=== PATIENT | male | born 1955 | race African-American/Black ===

== ENCOUNTER 2018-02-15 20:49 | Inpatient (IN) | payer OTHER ==
[~2018-02-15] VITALS: Ht 185.4 cm; Wt 95.7 kg
[~2018-02-15 20:49] MED LIST: ATORVASTATIN CA20 MG PO; LISINOPRIL10 MG PO; METFORMIN HCL500 M2 PO; TRULICITY; VITAMIN D35000 UNI1
[2018-02-15] MEDS ORDERED: SODIUM CHLORIDE 0.9% 1000ML 1,000 ML IV STA (21:05)
[2018-02-15] MEDS ORDERED: PANTOPRAZOLE 40 MG 10ML VIAL IV STA (21:05)
[2018-02-15 21:30] LABS: BASOPHILS % 0.2 % (0.0-1.0); EOSINOPHILS % 0.1 % (0.0-6.0); HEMATOCRIT 41.2 % (38.2-49.6); HEMOGLOBIN 14.4 g/dL (14.0-18.0); LYMPHOCYTES # (AUTO) 0.8 (1.0-3.2); LYMPHOCYTES % 5.3 % (18.0-39.1); MEAN CORPUSCULAR HEMOGLOBIN 29.5 pg (28-32); MEAN CORPUSCULAR VOLUME 84.4 fL (81-99); MONOCYTES # (AUTO) 0.6 (0.2-0.8); MONOCYTES % 3.9 % (4.4-11.3); NEUTROPHILS % 90.1 % (38.7-80.0); PLATELET COUNT 177 x10e3/uL (140-360); RED BLOOD COUNT 4.88 x10e6/uL (4.3-5.7); RED CELL DISTRIBUTION WIDTH 13.9 % (11.7-14.4)
[2018-02-15 21:38] LABS: INR 1.13; PARTIAL THROMBOPLASTIN TIME 24.9 seconds (23.8-35.5); PROTHROMBIN TIME 13.6 seconds (11.9-14.5)
--- NOTE | 2018-02-15 21:41 | Diagnostic Imaging Report ---
CHEST SINGLE (PORTABLE), 02/15/2018 9:05 PM Technique: CHEST SINGLE (PORTABLE) Comparison: None available. Clinical history: Fever Findings: Unremarkable portable appearance of the heart, mediastinum, lungs and pleural spaces. Prominent cardiac silhouette, likely accentuated by technique. Impression: 1. Lines/Tubes: None 2. No acute abnormality. Signed by: Dr Judi George MD on 02/15/2018 9:38 PM
[2018-02-15 21:49] LABS: ALANINE AMINOTRANSFERASE 20 IU/L (0-55); ALBUMIN 4.1 g/dL (3.5-5.0); ALBUMIN/GLOBULIN RATIO 1.3 (0.8-2.0); ALKALINE PHOSPHATASE 79 IU/L (40-150); ANION GAP 16.3 mmol/L (8-16); BLOOD UREA NITROGEN 11 mg/dL (7-26); BUN/CREATININE RATIO 9 (6-25); CALCIUM 9.5 mg/dL (8.4-10.2); CARBON DIOXIDE 24 mmol/L (22-29); CHLORIDE 105 mmol/L (98-107); CREATINE KINASE 170 IU/L (30-200); CREATININE, SERUM 1.17 mg/dL (0.72-1.25); EST GLOMERULAR FILTRATION RATE > 60 ML/MIN (60-); GLUCOSE 117 mg/dL (74-118); MAGNESIUM 2.2 MG/DL (1.3-2.1); POTASSIUM 3.3 mmol/L (3.5-5.1); SODIUM 142 mmol/L (136-145)
[2018-02-15] MEDS ORDERED: MEROPENEM 1 GM VIAL ONE (21:51)
[2018-02-15] MEDS ORDERED: MEROPENEM 1GRAM 1 GM in SODIUM CHLORIDE 0.9% 100 ML 100 ML IV SCH (22:00)
[2018-02-15] MEDS: ACETAMINOPHEN 1000 MG/100 ML IV SCH (22:00)
[2018-02-15] MEDS: MEROPENEM 1GRAM 1 GM in SODIUM CHLORIDE 0.9% 100 ML 100 ML IV SCH (22:48)
[2018-02-15 23:03] LABS: CLARITY,URINE CLOUDY (CLEAR); COLOR,URINE YELLOW (YELLOW); LEUKOCYTE ESTERASE ,URINE NEGATIVE (NEGATIVE); NITRITE,URINE NEGATIVE (NEGATIVE); PROTEIN,URINE DIPSTICK NEGATIVE (NEGATIVE)
[2018-02-15 23:04] LABS: BACTERIA,URINE MODERATE /HPF; BILIRUBIN,URINE NEGATIVE (NEGATIVE); EPITHELIAL CELLS,URINE RARE /LPF; KETONES,URINE NEGATIVE (NEGATIVE); MUCUS,URINE FEW (RARE); RBC,URINE 21-50 /HPF (0-5); URINE UROBILINOGEN 0.2 mg/dL (0.2 - 1); WBC,URINE (MAN) 21-50 /HPF (0-5)
[2018-02-15] MEDS ORDERED: MORPHINE SULFATE 2 MG/ML SYR IV PRN (23:30)
[2018-02-15] MEDS ORDERED: KCL 20MEQ/.9 SOD CHL 1,000 ML IV ONE (23:30)
[2018-02-15] MEDS ORDERED: DEXTROSE 50% SYRINGE 50 ML IV PRN (23:30)
[2018-02-15] MEDS ORDERED: ONDANSETRON HCL INJ 2 MG/ML VIAL IV PRN (23:30)
[2018-02-16] VITALS (9 sets, daily range): BP systolic 97–129; BP diastolic 56–62
[2018-02-16] MEDS: ACETAMINOPHEN 1000 MG/100 ML IV SCH ×4 (01:00→17:02)
[2018-02-16 04:43] LABS: BASOPHILS % 0.3 % (0.0-1.0); HEMATOCRIT 39.5 % (38.2-49.6); HEMOGLOBIN 13.6 g/dL (14.0-18.0); LYMPHOCYTES # (AUTO) 0.7 (1.0-3.2); LYMPHOCYTES % 4.7 % (18.0-39.1); MEAN CORPUSCULAR HEMOGLOBIN 29.6 pg (28-32); MEAN CORPUSCULAR HGB CONC 34.4 g/dL (31-35); MEAN CORPUSCULAR VOLUME 85.9 fL (81-99); MONOCYTES # (AUTO) 0.3 (0.2-0.8); MONOCYTES % 1.8 % (4.4-11.3); NEUTROPHILS # (AUTO) 14.5 (2.1-6.9); NEUTROPHILS % 92.8 % (38.7-80.0); PLATELET COUNT 170 x10e3/uL (140-360); RED CELL DISTRIBUTION WIDTH 14.1 % (11.7-14.4)
[2018-02-16] MEDS ORDERED: MEROPENEM 1 GM VIAL ONE ×3 (05:07→21:12)
[2018-02-16] MEDS: MEROPENEM 1GRAM 1 GM in SODIUM CHLORIDE 0.9% 100 ML 100 ML IV SCH ×3 (05:33→21:29)
[2018-02-16 06:58] LABS: ALANINE AMINOTRANSFERASE 17 IU/L (0-55); ALBUMIN 3.6 g/dL (3.5-5.0); ALBUMIN/GLOBULIN RATIO 1.3 (0.8-2.0); ALKALINE PHOSPHATASE 67 IU/L (40-150); ANION GAP 15.7 mmol/L (8-16); BLOOD UREA NITROGEN 11 mg/dL (7-26); BUN/CREATININE RATIO 9 (6-25); CALCIUM 8.9 mg/dL (8.4-10.2); CARBON DIOXIDE 24 mmol/L (22-29); CHLORIDE 102 mmol/L (98-107); CREATININE, SERUM 1.23 mg/dL (0.72-1.25); EST GLOMERULAR FILTRATION RATE > 60 ML/MIN (60-); GLUCOSE 129 mg/dL (74-118); POTASSIUM 4.7 mmol/L (3.5-5.1); SODIUM 137 mmol/L (136-145)
[2018-02-16] MEDS: INSULIN REGULAR, HUMAN 100 UNIT/1 ML 3ML VIAL SQ SCH ×4 (09:03→21:27)
[2018-02-16] MEDS ORDERED: HYDROCODONE/APAP 5MG-325MG TAB PO PRN (13:15)
[2018-02-16] MEDS: BACITRACIN ZINC 15 GM OINT TOP SCH (17:02)
[2018-02-16] MEDS: METFORMIN HCL 500 MG TAB CR PO SCH (17:02)
[2018-02-16] MEDS: ATORVASTATIN 40 MG TAB PO SCH (21:26)
[2018-02-16] MEDS: TAMSULOSIN HCL 0.4 MG CAP PO SCH (21:26)
[2018-02-17] VITALS (7 sets, daily range): BP systolic 97–121; BP diastolic 51–58
[2018-02-17] MEDS ORDERED: ACETAMINOPHEN 325 MG TAB PO PRN (00:30)
[2018-02-17 05:31] LABS: BASOPHILS % 0.2 % (0.0-1.0); HEMATOCRIT 38.8 % (38.2-49.6); HEMOGLOBIN 13.5 g/dL (14.0-18.0); MEAN CORPUSCULAR HEMOGLOBIN 29.5 pg (28-32); MEAN CORPUSCULAR HGB CONC 34.8 g/dL (31-35); MEAN CORPUSCULAR VOLUME 84.7 fL (81-99); MONOCYTES # (AUTO) 0.5 (0.2-0.8); MONOCYTES % 5.2 % (4.4-11.3); NEUTROPHILS # (AUTO) 7.8 (2.1-6.9); PLATELET COUNT 146 x10e3/uL (140-360); RED BLOOD COUNT 4.58 x10e6/uL (4.3-5.7)
[2018-02-17 05:51] LABS: ANION GAP 16.7 mmol/L (8-16); BLOOD UREA NITROGEN 13 mg/dL (7-26); BUN/CREATININE RATIO 12 (6-25); CARBON DIOXIDE 22 mmol/L (22-29); CHLORIDE 104 mmol/L (98-107); EST GLOMERULAR FILTRATION RATE > 60 ML/MIN (60-); GLUCOSE 107 mg/dL (74-118); POTASSIUM 3.7 mmol/L (3.5-5.1); SODIUM 139 mmol/L (136-145)
[2018-02-17] MEDS ORDERED: MEROPENEM 1 GM VIAL ONE ×3 (05:53→20:53)
[2018-02-17] MEDS: MEROPENEM 1GRAM 1 GM in SODIUM CHLORIDE 0.9% 100 ML 100 ML IV SCH ×3 (06:10→21:10)
[2018-02-17] MEDS: INSULIN REGULAR, HUMAN 100 UNIT/1 ML 3ML VIAL SQ SCH ×4 (07:30→21:00)
[2018-02-17] MEDS: METFORMIN HCL 500 MG TAB CR PO SCH ×2 (08:08→16:40)
[2018-02-17] MEDS: LISINOPRIL 20 MG TAB PO SCH (08:08)
[2018-02-17] MEDS: BACITRACIN ZINC 15 GM OINT TOP SCH ×2 (08:48→17:03)
[2018-02-17] MEDS ORDERED: LEVOFLOXACIN 500MG/D5W 100ML 100 ML IV SCH (14:15)
--- NOTE | 2018-02-17 17:21 | Consultation ---
DATE OF CONSULTATION: REASON FOR CONSULTATION: Fever and chills. This patient who is a very pleasant 62-year-old gentleman underwent circumcision on Monday. On , had fever and chills. The patient had burning. The patient came to the emergency room where he was admitted. The patient had prostate biopsy and circumcision done. PAST MEDICAL HISTORY: Significant for hypertension, hypercholesterolemia and diabetes. PAST SURGICAL HISTORY: As above. ALLERGIES: NKA. SOCIAL HISTORY: There is no smoking, drug abuse or alcohol abuse. FAMILY AND SOCIAL HISTORY: Unremarkable. REVIEW OF SYSTEMS HEENT: Negative. PULMONARY: Negative. : Negative. PHYSICAL EXAMINATION GENERAL: He is currently alert and oriented. Does not seem to be in acute distress. VITALS: Stable. Currently afebrile. HEENT: Not icteric. NECK: Supple. CHEST: Clear. HEART: S1 and S2. No murmur. ABDOMEN: Soft. Bowel sounds present. EXTREMITIES: No edema. : The incision of the circumcision looks really good. Blood cultures show gram-negative rods. Urine culture with gram-negative rods. IMPRESSION 1. Sepsis present on admission. 2. Gram-negative pyelonephritis. Agree with meropenem 500 IV. He is on 1 g q.8 h. Will add Levaquin until we get the sensitivity. Recheck CBC. Recheck Chem panel. Will follow. Job#: [id number] EARL
[2018-02-17] MEDS: TAMSULOSIN HCL 0.4 MG CAP PO SCH (21:07)
[2018-02-17] MEDS: ATORVASTATIN 40 MG TAB PO SCH (21:07)
[2018-02-18] VITALS (8 sets, daily range): BP systolic 94–138; BP diastolic 52–78
[2018-02-18 05:21] LABS: BASOPHILS % 0.3 % (0.0-1.0); EOSINOPHILS % 0.3 % (0.0-6.0); HEMATOCRIT 39.1 % (38.2-49.6); HEMOGLOBIN 13.6 g/dL (14.0-18.0); LYMPHOCYTES # (AUTO) 1.3 (1.0-3.2); LYMPHOCYTES % 17.6 % (18.0-39.1); MEAN CORPUSCULAR HGB CONC 34.8 g/dL (31-35); MEAN CORPUSCULAR VOLUME 83.4 fL (81-99); MONOCYTES # (AUTO) 0.8 (0.2-0.8); MONOCYTES % 10.7 % (4.4-11.3); NEUTROPHILS % 70.7 % (38.7-80.0); PLATELET COUNT 145 x10e3/uL (140-360); RED BLOOD COUNT 4.69 x10e6/uL (4.3-5.7); RED CELL DISTRIBUTION WIDTH 13.9 % (11.7-14.4)
[2018-02-18 05:30] LABS: ANION GAP 14.7 mmol/L (8-16); BLOOD UREA NITROGEN 14 mg/dL (7-26); BUN/CREATININE RATIO 13 (6-25); CALCIUM 9.1 mg/dL (8.4-10.2); CARBON DIOXIDE 26 mmol/L (22-29); CHLORIDE 102 mmol/L (98-107); CREATININE, SERUM 1.08 mg/dL (0.72-1.25); EST GLOMERULAR FILTRATION RATE > 60 ML/MIN (60-); GLUCOSE 134 mg/dL (74-118); POTASSIUM 3.7 mmol/L (3.5-5.1); SODIUM 139 mmol/L (136-145)
[2018-02-18] MEDS ORDERED: MEROPENEM 1 GM VIAL ONE (06:00)
[2018-02-18] MEDS: MEROPENEM 1GRAM 1 GM in SODIUM CHLORIDE 0.9% 100 ML 100 ML IV SCH (06:08)
[2018-02-18] MEDS: INSULIN REGULAR, HUMAN 100 UNIT/1 ML 3ML VIAL SQ SCH ×4 (07:30→21:10)
[2018-02-18] MEDS: METFORMIN HCL 500 MG TAB CR PO SCH ×2 (08:10→16:34)
[2018-02-18] MEDS: LISINOPRIL 20 MG TAB PO SCH (08:10)
[2018-02-18] MEDS: BACITRACIN ZINC 15 GM OINT TOP SCH ×2 (08:11→16:42)
[2018-02-18] MEDS: MEROPENEM 1 GM VIAL IV SCH ×2 (13:59→21:39)
[2018-02-18] MEDS: TAMSULOSIN HCL 0.4 MG CAP PO SCH (21:38)
[2018-02-18] MEDS: ATORVASTATIN 40 MG TAB PO SCH (21:39)
[2018-02-19] VITALS: BP 121/59
[2018-02-19 04:00] VITALS: BP 107/62
[2018-02-19] MEDS: MEROPENEM 1 GM VIAL IV SCH (06:15)
[2018-02-19 07:42] VITALS: BP 106/62
[2018-02-19] MEDS ORDERED: MORPHINE SULFATE INJ 4 MG/ML INJ IV PRN (08:00)
[2018-02-19 08:30] VITALS: BP 106/62
[2018-02-19] MEDS: METFORMIN HCL 500 MG TAB CR PO SCH ×2 (08:30→16:56)
[2018-02-19] MEDS: LISINOPRIL 20 MG TAB PO SCH (08:30)
[2018-02-19] MEDS: INSULIN REGULAR, HUMAN 100 UNIT/1 ML 3ML VIAL SQ SCH ×3 (08:30→16:30)
[2018-02-19] MEDS: BACITRACIN ZINC 15 GM OINT TOP SCH (08:30)
[2018-02-19 12:00] VITALS: BP 103/61
--- NOTE | 2018-02-19 13:42 | Diagnostic Imaging Report ---
PROCEDURE: A single AP view of the chest. COMPARISON: 02/15/18 INDICATIONS: PICC LINE PLACEMENT FINDINGS: Lines/tubes: New right PICC in place with tip overlying inferior SVC. Lungs: The lungs are well inflated. There is no evidence of pneumonia or pulmonary edema. Pleura: There is no pleural effusion or pneumothorax. Heart and mediastinum: The heart and the mediastinum are unremarkable. Bones: No acute bony abnormality. IMPRESSION: New right PICC in place with tip overlying inferior SVC. No visible pneumothorax. Dictated by: Ti Malhotra M.D. on 02/19/2018 at 13:46 Electronically approved by: Ti Malhotra M.D. on 02/19/2018 at 13:46
[2018-02-19] MEDS ORDERED: FLOMAX0.4 MG PO (17:07)
[2018-02-19 17:17] VITALS: BP 111/56
[2018-02-20] MEDS ORDERED: CEFTRIAXONE SOD 1 GM VIAL IV SCH ×2 (09:00)
== END 2018-02-19 18:05 | disposition home or self-care (01) | DRG 872 ==
LOC: ER 20:49 → ERHOLD 23:27 → MED/SURG 02-16 00:30
DX: A41.51 Sepsis due to Escherichia coli [E. coli] (principal); N30.01 Acute cystitis with hematuria; E11.9 Type 2 diabetes mellitus without complications; I10 Essential (primary) hypertension; E78.5 Hyperlipidemia, unspecified; C61 Malignant neoplasm of prostate; B96.20 Unspecified Escherichia coli [E. coli] as the cause of diseases classified elsewhere; Z16.35 Resistance to multiple antimicrobial drugs; E78.00 Pure hypercholesterolemia, unspecified
CPT/HCPCS: 36415; 36569; 71045; 80048; 80053; 81001; 82550; 82553; 82948; 83605; 83735; 84484; 85025; 85610; 85730; 87040; 87071; 87086; 87186; 87205; 93005; 99284; J1956; J2185; J2270; J2405; J7030

== ENCOUNTER → 2018-05-04 | Outpatient (CLI) | payer OTHER ==
[~2018-05-04] MED LIST changes: +FLOMAX0.4 MG PO; +IOPAMIDOL 370 MG/ML 200 ML INFUS..BTL INJ ONE; +SODIUM CHLORIDE 0.9% 50ML 50 ML ONE
[2018-05-04 12:15] LABS: BLOOD UREA NITROGEN 10 mg/dL (7-26); BUN/CREATININE RATIO 9 (6-25); CREATININE, SERUM 1.12 mg/dL (0.72-1.25); EST GLOMERULAR FILTRATION RATE > 60 ML/MIN (60-)
--- NOTE | 2018-05-04 13:41 | Diagnostic Imaging Report ---
EXAMINATION: CT of the abdomen and pelvis with contrast. TECHNIQUE: Helical CT images of the abdomen and pelvis were performed from the lung bases to the lesser trochanters after the intravenous administration of 150 cc of Omnipaque 300 and the oral administration of Redicat. Coronal and sagittal reformatted images were obtained.Dose modulation, iterative reconstruction, and/or weight based adjustment of the mA/kV was utilized to reduce the radiation dose to as low as reasonably achievable. COMPARISON: None. CLINICAL HISTORY:Malignant neoplasm of the prostate DISCUSSION: ABDOMEN/PELVIS: LOWER THORAX:Unremarkable. HEPATOBILIARY: No focal hepatic lesions. No intra-or extrahepatic biliary ductal dilation. The gallbladder is normal. SPLEEN: No splenomegaly. PANCREAS: No focal masses or ductal dilatation. ADRENALS: No adrenal nodules. KIDNEYS/URETERS: No hydronephrosis, stones, or solid mass lesions. PELVIC ORGANS/BLADDER: The bladder is normal. PERITONEUM/RETROPERITONEUM: No free air or fluid. LYMPH NODES: No intra-abdominal, retroperitoneal, pelvic or inguinal lymphadenopathy. VESSELS: Limited evaluation. GI TRACT: No obstruction. No wall thickening. Appendix normal. BONES AND SOFT TISSUE: 1.7 cm sclerotic focus adjacent to the right sacroiliac joint, likely benign. Sacroiliac degenerative arthrosis. IMPRESSION: No definite metastasis or adenopathy visualized. 1.7 cm sclerotic focus adjacent to the right sacroiliac joint likely benign. Signed by: Dr. Forrest Puentes M.D. on 05/04/2018 1:37 PM
--- NOTE | 2018-05-04 18:45 | Diagnostic Imaging Report ---
Bone Scan, delayed phase INDICATION: Prostate cancer COMPARISON: CT abdomen/pelvis 05/04/2018 REPORT: Approximately 3 hours following intravenous administration of 27 mCi of Tc-99m MDP, delayed total body images in the anterior and posterior projections and selected spot images were obtained. Degenerative change sare noted in the cervicothoracic junction, multiple levels of the thoracolumbar spine, shoulders, knees and feet. Otherwise, distribution of tracer activity is unremarkable throughout the skeletal system. No abnormal accumulation of tracer is seen in the soft tissues or urinary tract. IMPRESSION: No scan evidence of metastatic bone disease. Signed by: Dr. Rere Cheung M.D. on 05/04/2018 6:42 PM
== END ==
LOC: NM 11:20
PROVIDERS: ATTEND Urology
DX: C61 Malignant neoplasm of prostate (principal)
CPT/HCPCS: 36415; 74177; 78306; 82565; 84520; A9503; Q9967

== ENCOUNTER → 2020-03-18 | Day surgery (SDC) | payer OTHER ==
[~2020-03-18] MED LIST changes: +ALIGN4 MG PO; +GLIMEPIRIDE2 MG PO; +HYOSCYAMINE 0.125 MG TAB ONE; +INVOKANA300 MG PO; -IOPAMIDOL 370 MG/ML 200 ML INFUS..BTL INJ ONE; +LIDOCAINE HCL 2% LOCAL INJ 5 ML SDV VIAL INJ ONE; +LUMIGAN2.5 M1 OU; +PROPOFOL IV EMULSION 10 MG/ML 20 ML VIAL ONE; -SODIUM CHLORIDE 0.9% 50ML 50 ML ONE; +TRULICITY1.5 MG/0.5 SQ; +VITAMIN B-121000 MCG PO; +VITAMIN E400 UNI1 PO
[2020-03-18 10:15] VITALS: BP 116/73
--- NOTE | 2020-03-18 11:24 | Operative Report ---
DATE OF PROCEDURE: 03/18/2020 SURGEON: Hari Orellana MD PROCEDURES: EGD with polypectomy, biopsies and esophageal dilatation, and a limited colonoscopy with polypectomy. INDICATIONS FOR EGD: Acid reflux, dysphagia. INDICATIONS FOR COLONOSCOPY: Colorectal cancer screening. MEDICATIONS: The patient was done under MAC, please see anesthesiologist's note. PROCEDURE IN DETAIL: With the patient in left lateral decubitus position, a flexible fiberoptic Olympus gastroscope was introduced into the esophagus under direct visualization without any difficulty. The esophagus appeared to be within normal limits. It was dilated to size 52-Kinyarwanda Blanco. The scope was then advanced with ease into the stomach, mucosa overlying the antrum revealed some diffuse intense erythema and biopsies were obtained, and sent to stain for H. pylori. The mucosa overlying the distal body and the proximal antrum appeared somewhat atrophic, and biopsies were obtained to rule out atrophic gastritis. Two minute polyps were partially excised with cold biopsy forceps in the body of the stomach. The pylorus was of normal contour and shape, it was intubated with ease and the scope was advanced, all the way to the second portion of the duodenum. The scope was then withdrawn slowly, mucosa overlying the proximal second portion appeared to be within normal limits. A minute polyp was noted in the duodenal bulb and that was biopsied per the cold biopsy forceps. The scope was then withdrawn back into the stomach and retroflexed, and the fundus along with the cardia were grossly unremarkable. There was a minute polyp noted in the just below the cardia and that was not biopsied. The scope was then straightened out, it was subsequently withdrawn. The patient tolerated the procedure well. IMPRESSION: 1. Esophagus dilated to size 52-Kinyarwanda Blanco. 2. Gastritis, antrum biopsied, biopsies sent to stain for H. pylori. 3. Rule out atrophic gastritis, distal body and proximal antrum. 4. Gastric polyps x2, body, hyperplastic appearing, partially excised with cold biopsy forceps. 5. Duodenal bulb, minute polyp, biopsied. PLAN: 1. Follow up histology. 2. Continue Protonix 40 mg one p.o. q.a.m. a.c. DESCRIPTION OF PROCEDURE: The patient was then turned around after adequate lubrication of the anal canal, a flexible fiberoptic Olympus colonoscope was advanced into the rectum. I was inserted into the rectum and advanced to approximately 40 cm from the anal verge. It was not advanced any further due to the presence of large fecal material. The scope was then withdrawn slowly and two polyps up to 7 mm in size, sessile, were removed per hot snare polypectomy from the sigmoid colon. A [id number] amount of retained fecal material was also noted in the rectum and the scope was then retroflexed into the distal rectum and the area around the dentate line was fully visualized due to the presence of the stool. The scope was then straightened out, it was subsequently withdrawn. The patient tolerated the procedure well. IMPRESSION: 1. Limited colonoscopy to approximately 40 cm from the anal verge, could not advanced scope any further secondary to poor prep. 2. Sigmoid colon polyps x2, hot snared. PLAN: 1. Followup histology. 2. The patient will need a colonoscopy after a better prep to rule out synchronous colorectal neoplasm. Hari Orellana MD [facility] [place] [place] /[id number] cc: Mario Orellana MD
== END | disposition home or self-care (01) ==
LOC: OR 06:45
PROVIDERS: ATTEND Internal Medicine Gastroenterology
DX: Z12.11 Encounter for screening for malignant neoplasm of colon (principal); D12.5 Benign neoplasm of sigmoid colon; K31.7 Polyp of stomach and duodenum; K29.50 Unspecified chronic gastritis without bleeding; B96.81 Helicobacter pylori [H. pylori] as the cause of diseases classified elsewhere; K59.09 Other constipation; K21.9 Gastro-esophageal reflux disease without esophagitis; E11.9 Type 2 diabetes mellitus without complications; I10 Essential (primary) hypertension; E78.00 Pure hypercholesterolemia, unspecified; Z01.810 Encounter for preprocedural cardiovascular examination; Z01.812 Encounter for preprocedural laboratory examination; Z11.59 Encounter for screening for other viral diseases; Z79.84 Long term (current) use of oral hypoglycemic drugs
CPT/HCPCS: 43239; 43450; 45385; 93005; J2001; J2704; U0002

== ENCOUNTER → 2020-03-19 | Day surgery (SDC) | payer OTHER ==
[~2020-03-19] MED LIST changes: +FENTANYL CITRATE/PF 100MCG/2 ML INJ ONE; +MIDAZOLAM HCL 2 MG/2 ML VIAL ONE
[2020-03-19 14:15] VITALS: BP 117/67
--- NOTE | 2020-03-19 14:55 | Operative Report ---
DATE OF PROCEDURE: 03/19/2020 SURGEON: Hari Orellana MD PROCEDURE: Colonoscopy with polypectomy. INDICATIONS FOR COLONOSCOPY: Colorectal cancer screening, poor prep on recent colonoscopy. MEDICATIONS: The patient was done under MAC, please see anesthesiologist's note. PROCEDURE IN DETAIL: With the patient in left lateral decubitus position, a flexible fiberoptic Olympus colonoscope was inserted into the rectum with ease and advanced all the way to the cecum. The prep was suboptimal in the right colon. A minute polyp was removed per cold biopsy forceps from the cecum. The two polyps were hot snared from the ascending colon. One polypectomy site was hemoclipped. Three polyps were hot snared, one polyp was hot biopsied from the transverse colon. One polyp was hot snared from the descending colon. Sigmoid and rectum grossly appeared to be within normal limits. The scope was then retroflexed into the distal rectum and moderate-sized internal hemorrhoids were noted, none of which was actively bleeding. The scope was then straightened out, it was subsequently withdrawn. The patient tolerated the procedure well. IMPRESSION: 1. Suboptimal prep, right colon. 2. Cecal polyp removed per cold biopsy forceps. 3. Ascending colon polyps x2 hot snared, one polypectomy site hemoclipped x1. 4. Transverse colon polyps x4, one hot biopsied and three hot snared. 5. Descending colon polyp, hot snared. 6. Internal hemorrhoids, none actively bleeding. PLAN: 1. Follow up histology. 2. Followup histology. 3. Initiate high-fiber, low-fat diet. 4. Initiate high-fiber supplement. 5. The patient might benefit from a followup colonoscopy in one year. Hari Orellana MD [facility] [place] /[id number] cc: Mario Orellana MD
== END | disposition home or self-care (01) ==
LOC: OR 11:55
PROVIDERS: ATTEND Internal Medicine Gastroenterology
DX: Z12.11 Encounter for screening for malignant neoplasm of colon (principal); D12.2 Benign neoplasm of ascending colon; D12.3 Benign neoplasm of transverse colon; D12.4 Benign neoplasm of descending colon; K59.09 Other constipation; K64.8 Other hemorrhoids; K21.9 Gastro-esophageal reflux disease without esophagitis; R13.19 Other dysphagia; E11.9 Type 2 diabetes mellitus without complications; I10 Essential (primary) hypertension; E78.5 Hyperlipidemia, unspecified; I49.1 Atrial premature depolarization; R01.1 Cardiac murmur, unspecified; Z85.46 Personal history of malignant neoplasm of prostate; Z11.59 Encounter for screening for other viral diseases; Z79.84 Long term (current) use of oral hypoglycemic drugs
CPT/HCPCS: 36415; 45380; 45384; 45385; 82948; J2001; J2704; U0002; 45378

== ENCOUNTER 2020-09-30 10:22 | Emergency (ER) | payer OTHER ==
[~2020-09-30] VITALS: Ht 185.4 cm; Wt 95.7 kg
[~2020-09-30 10:22] MED LIST changes: -FENTANYL CITRATE/PF 100MCG/2 ML INJ ONE; -HYOSCYAMINE 0.125 MG TAB ONE; -LIDOCAINE HCL 2% LOCAL INJ 5 ML SDV VIAL INJ ONE; -MIDAZOLAM HCL 2 MG/2 ML VIAL ONE; -PROPOFOL IV EMULSION 10 MG/ML 20 ML VIAL ONE
[2020-09-30 10:54] LABS: BASOPHILS % 0.3 % (0.0-1.0); EOSINOPHILS # (AUTO) 0.2 (0.0-0.4); EOSINOPHILS % 2.8 % (0.0-6.0); HEMATOCRIT 41.6 % (38.2-49.6); HEMOGLOBIN 13.8 g/dL (14.0-18.0); LYMPHOCYTES % 30.1 % (18.0-39.1); MEAN CORPUSCULAR HEMOGLOBIN 28.3 pg (28-32); MEAN CORPUSCULAR HGB CONC 33.2 g/dL (31-35); MEAN CORPUSCULAR VOLUME 85.2 fL (81-99); MONOCYTES # (AUTO) 0.6 (0.2-0.8); MONOCYTES % 8.4 % (4.4-11.3); NEUTROPHILS # (AUTO) 3.9 (2.1-6.9); NEUTROPHILS % 58.1 % (38.7-80.0); PLATELET COUNT 272 x10e3/uL (140-360); RED BLOOD COUNT 4.88 x10e6/uL (4.3-5.7); RED CELL DISTRIBUTION WIDTH 14.6 % (11.7-14.4)
[2020-09-30 11:18] LABS: ALANINE AMINOTRANSFERASE 20 IU/L (0-55); ALBUMIN 4.4 g/dL (3.5-5.0); ALBUMIN/GLOBULIN RATIO 1.5 (0.8-2.0); ALKALINE PHOSPHATASE 93 IU/L (40-150); ANION GAP 14.9 mmol/L (8-16); BLOOD UREA NITROGEN 10 mg/dL (7-26); BUN/CREATININE RATIO 9 (6-25); CALCIUM 9.7 mg/dL (8.4-10.2); CARBON DIOXIDE 26 mmol/L (22-29); CHLORIDE 105 mmol/L (98-107); CREATININE, SERUM 1.06 mg/dL (0.72-1.25); EST GLOMERULAR FILTRATION RATE > 60 ML/MIN (60-); GLUCOSE 127 mg/dL (74-118); POTASSIUM 3.9 mmol/L (3.5-5.1); SODIUM 142 mmol/L (136-145)
[2020-09-30 13:02] VITALS: BP 123/85
== END 2020-09-30 13:10 | disposition home or self-care (01) ==
LOC: ER 10:40
DX: M79.605 Pain in left leg (principal); M79.602 Pain in left arm; M54.2 Cervicalgia; Y93.01 Activity, walking, marching and hiking; Y92.488 Other paved roadways as the place of occurrence of the external cause; E11.65 Type 2 diabetes mellitus with hyperglycemia; I10 Essential (primary) hypertension; E78.5 Hyperlipidemia, unspecified; E78.00 Pure hypercholesterolemia, unspecified
CPT/HCPCS: 36415; 71045; 80053; 83880; 84484; 85025; 93005; 99283

== ENCOUNTER → 2021-04-14 | Day surgery (SDC) | payer OTHER ==
[~2021-04-14] MED LIST changes: +JARDIANCE25 MG PO; +PROPOFOL IV EMULSION 10 MG/ML 20 ML VIAL ONE; +PROTONIX20 MG PO; -VITAMIN D35000 UNI1; +VITAMIN D35000 UNI1 PO
[2021-04-14 13:45] VITALS: BP 110/86
== END | disposition home or self-care (01) ==
LOC: OR 10:08
PROVIDERS: ATTEND Internal Medicine Gastroenterology
DX: K20.90 Esophagitis, unspecified without bleeding (principal); D12.2 Benign neoplasm of ascending colon; D12.3 Benign neoplasm of transverse colon; K29.70 Gastritis, unspecified, without bleeding; K31.89 Other diseases of stomach and duodenum; K21.9 Gastro-esophageal reflux disease without esophagitis; K64.8 Other hemorrhoids; I10 Essential (primary) hypertension; E11.9 Type 2 diabetes mellitus without complications; I44.0 Atrioventricular block, first degree; E78.00 Pure hypercholesterolemia, unspecified; Z01.810 Encounter for preprocedural cardiovascular examination; Z01.812 Encounter for preprocedural laboratory examination; Z20.822 Contact with and (suspected) exposure to COVID-19; Z79.84 Long term (current) use of oral hypoglycemic drugs; Z68.29 Body mass index [BMI] 29.0-29.9, adult
CPT/HCPCS: 36415; 43239; 43450; 45384; 45385; 82948; 93005; J2704; U0002; 45378

== ENCOUNTER → 2021-06-14 | Outpatient (CLI) | payer OTHER ==
[~2021-06-14] MED LIST changes: +LOSARTAN POTAS100 MG PO; +METOCLOPRAMIDE10 MG PO; -PROPOFOL IV EMULSION 10 MG/ML 20 ML VIAL ONE
== END ==
LOC: LAB 10:22 → OR 06-16 05:48 → EDSTATUS 06-16 07:30
PROVIDERS: ATTEND Internal Medicine Gastroenterology
DX: Z09 Encounter for follow-up examination after completed treatment for conditions other than malignant neoplasm (principal); Z86.010 Personal history of colon polyps; Z53.8 Procedure and treatment not carried out for other reasons; U07.1 COVID-19
CPT/HCPCS: U0002

== ENCOUNTER → 2021-06-30 | Day surgery (SDC) | payer OTHER ==
[~2021-06-30] MED LIST changes: +FENTANYL CITRATE/PF 100MCG/2 ML INJ ONE; +GLUCAGON FOR INJ 1 MG VIAL ONE; +HYOSCYAMINE SULFATE 0.5 MG/ML INJ ONE; +LIDOCAINE HCL 2% LOCAL INJ 5 ML SDV VIAL INJ ONE; +MIDAZOLAM HCL 2 MG/2 ML VIAL ONE; +PROPOFOL IV EMULSION 10 MG/ML 20 ML VIAL ONE
[2021-06-30 09:05] VITALS: BP 126/77
== END | disposition home or self-care (01) ==
LOC: OR 05:46
PROVIDERS: ATTEND Internal Medicine Gastroenterology
DX: Z09 Encounter for follow-up examination after completed treatment for conditions other than malignant neoplasm (principal); D12.3 Benign neoplasm of transverse colon; K62.1 Rectal polyp; K64.8 Other hemorrhoids; K21.9 Gastro-esophageal reflux disease without esophagitis; I10 Essential (primary) hypertension; E11.9 Type 2 diabetes mellitus without complications; I44.0 Atrioventricular block, first degree; E78.5 Hyperlipidemia, unspecified; Z79.84 Long term (current) use of oral hypoglycemic drugs; Z79.899 Other long term (current) drug therapy; Z85.46 Personal history of malignant neoplasm of prostate; Z92.3 Personal history of irradiation; Z86.16 Personal history of COVID-19
CPT/HCPCS: 36415; 45384; 45385; 82948; J1610; J1980; J2001; J2250; J2704; J3010; 45378